=== PATIENT | male | born 1965 | race Asian ===

== ENCOUNTER → 2019-09-21 | Emergency (ER) | payer OTHER ==
[~2019-09-21] VITALS: Ht 167.6 cm; Wt 68.0 kg
[~2019-09-21] MED LIST: ALUM & MAG HYDROX-SIMETH LIQ(MAALOX) 30 ML PO ONE; ASPirin 81 mg TAB PO ONE; DONNATAL 5ml ORAL Elix (BELLADONNA ALK-PHENOBARB) PO ONE; HYDROmorphone HCL 2 MG/ML VL ONE; LIDOCAINE VISCOUS 2% 15ML UD PO ONE
[2019-09-21 07:53] LABS: Basophils # (auto) 0 10 ^3/uL (0-0.2); Basophils % (auto) 0.5 % (0.0-2.0); Eosinophils # (auto) 0 10 ^3/uL (0-0.8); Eosinophils % (auto) 0.1 % (0.0-7.0); Hematocrit 44.2 % (41.0-53.0); Hemoglobin 14.9 g/dL (13.5-17.5); Lymphocytes # (auto) 0.8 10 ^3/uL (0.4-5.4); Mean Corpuscular Hemoglobin 31.5 pg (28.0-32.0); Mean Corpuscular Hgb Conc. 33.7 g/dL (32.0-36.0); Mean Corpuscular Volume 93.4 fL (80.0-100.0); Monocytes # (auto) 0.3 10 ^3/uL (0-1.3); Monocytes % (auto) 4.6 % (0.0-12.0); Neutrophils # (auto) 5.6 10 ^3/uL (1.6-8.6); Neutrophils % (auto) 82.8 % (37.0-80.0); Platelet Count (auto) 240 10^3/uL (140-450); Red Blood Cells 4.73 10^6/uL (4.5-5.90); Red Cell Distribution Width 13.3 % (11.8-14.3); White Blood Cell 6.8 10^3/uL (4.4-10.8)
[2019-09-21 07:59] LABS: Urine WBC None Seen /hpf (0 - 3)
[2019-09-21 08:09] LABS: Urine Bacteria FEW /hpf (None Seen); Urine Blood Negative /uL (Negative); Urine Specific Gravity 1.008 (1.001-1.035)
[2019-09-21 08:12] LABS: Alanine Aminotransferase 44 U/L (16-61); Albumin 3.9 g/dL (3.4-5.0); Anion Gap 8 (5-15); Aspartate Aminotransferase 41 U/L (15-37); Blood Urea Nitrogen 22 mg/dL (7-18); Calcium 8.3 mg/dL (8.5-10.1); Carbon Dioxide 26 mmol/L (21-32); Chloride 102 mmol/L (98-107); Glucose 112 mg/dL (74-106); Potassium 3.7 mmol/L (3.5-5.1); Sodium 136 mmol/L (136-145)
[2019-09-21 08:17] LABS: Alkaline Phosphatase 69 U/L (45-117); BUN/Creatinine Ratio 19.1; Bilirubin, Total 0.4 mg/dL (0.2-1.0); GFR African American 86 mL/min; GFR Non-African American 71 mL/min
[2019-09-21 08:25] LABS: Amphetamine Screen, Urine NEGATIVE (NEGATIVE); Barbiturate Scree,Urine NEGATIVE (NEGATIVE); Benzodiazephine Screen, Urine NEGATIVE (NEGATIVE); Cannabinoid Screen, Urine NEGATIVE (NEGATIVE); Cocaine Screen, Urine NEGATIVE (NEGATIVE); Opiate Scree,Urine NEGATIVE (NEGATIVE); Phencyclidine Screen, Urine NEGATIVE (NEGATIVE)
[2019-09-21 09:43] VITALS: BP 135/74
== END | disposition home or self-care (01) ==
LOC: EDSEX 07:23 → ER 07:23
DX: R07.89 Other chest pain (principal); K21.9 Gastro-esophageal reflux disease without esophagitis
CPT/HCPCS: 36415; 71045; 80053; 80307; 81001; 84484; 85025; 93005